=== PATIENT | male | born 1945 | race Caucasian/White ===

== ENCOUNTER → 2021-05-22 09:38 | Outpatient (CLI) | payer OTHER, SELFPAY ==
[2021-05-22 13:48] LABS: COVID19 -Nasal RAPID Negative (Negative)
== END ==
PROVIDERS: Visit Provider Student in an Organized Health Care Education/Training Program
DX: Z01.812 Encounter for preprocedural laboratory examination (principal); Z20.822 Contact with and (suspected) exposure to COVID-19
CPT/HCPCS: 87635; C9803

== ENCOUNTER → 2021-05-23 14:44 | Outpatient (CLI) | payer OTHER, SELFPAY ==
--- NOTE | 2021-05-23 18:33 | DI.NM.S_ITS ---
DATE OF SERVICE: 05/23/2021 PROCEDURE PERFORMED: Exercise treadmill stress test without imaging. ORDERING PROVIDER: Dr. Radha Nixon. INDICATIONS: The patient is a 75-year-old male with exertional dyspnea. FINDINGS: 1. The patient was able to exercise for 6 minutes, 43 seconds on a standard Joon protocol suggesting good exercise capacity with an DIANA of -10%, achieving 7.0 METs. 2. He had a normal heart rate and blood pressure response to exercise, achieving a maximum heart rate of 138 BPM (95% of his predicted maximum). 3. He had no chest discomfort or anginal pain, although did have moderate exertional dyspnea at peak exercise with an O2 saturation of 93%. 4. Resting ECG shows sinus bradycardia with borderline upsloping ST depression which become slightly accentuated with stress but remains upsloping and nonspecific without any concerning ST-segment depression. He had occasional PACs and PVCs without any complex ectopy. IMPRESSION: 1. Probable normal stress test for ischemia with only mild, nonspecific, upsloping ST-segment depression. 2. Good exercise capacity without chest discomfort but moderate dyspnea with normal oxygen saturation. He had occasional PACs and PVCs but no complex ectopy. SHAYNEDAVIDINGRID - ALONA/krystal/sofia doc#: [id number]/job#: [id number] dd: 05/23/2021 17:55:00 dt: 05/23/2021 18:10:00 DICTATING /COPIES TO: Александр Aguirre MD; Radha Nixon MD COPIES MNE: NICO;
== END ==
PROVIDERS: Referring Provider Internal Medicine; Visit Provider Internal Medicine
DX: R06.09 Other forms of dyspnea (principal)
CPT/HCPCS: 93017